=== PATIENT | male | born 1980 | race Caucasian/White ===

== ENCOUNTER 2018-12-21 14:09 | Emergency (ER) | payer OTHER ==
[~2018-12-21] VITALS: Ht 175.3 cm; Wt 90.9 kg
[2018-12-21 15:04] LABS: BASO % 0.6 % (0.0-1.0); EOS # 0.2 10^3/uL (0.0-0.50); EOS % 4.8 % (0.0-3.0); HEMATOCRIT 38.3 % (42.0-52.0); HEMOGLOBIN 13.3 g/dl (13.5-17.5); LYMPH # 1.4 10^3/uL (1.5-4.5); LYMPH % 40.1 % (24.0-44.0); MEAN CORPUSCULAR HEMOGLOBIN 31.8 pg (27.0-33.0); MEAN CORPUSCULAR HGB CONC 34.7 g/dl (32.0-36.5); MEAN CORPUSCULAR VOLUME 91.6 fl (80.0-96.0); MONO # 0.6 10^3/uL (0.0-0.8); NEUTROPHILS # 1.4 10^3/uL (1.8-7.7); NEUTROPHILS % 38.2 % (36.0-66.0); PLATELET COUNT, AUTOMATED 200 10^3/uL (150-450); RED BLOOD COUNT 4.18 10^6/uL (4.30-6.10); WHITE BLOOD COUNT 3.6 10^3/uL (4.0-10.0)
[2018-12-21] MEDS ORDERED: ONDANSETRON 4MG/2ML VIAL (J2405) IV ONE (15:15)
[2018-12-21] MEDS ORDERED: KETOROLAC 30 MG/ML VIAL (J1885) IV ONE (15:15)
[2018-12-21 15:59] LABS: ALT/SGPT 48 U/L (12-78); BILIRUBIN,TOTAL 0.3 MG/DL (0.2-1.0); BLOOD UREA NITROGEN 18 MG/DL (7-18); CALCIUM LEVEL 8.8 MG/DL (8.5-10.1); CARBON DIOXIDE LEVEL 26 MEQ/L (21-32); CHLORIDE LEVEL 105 MEQ/L (98-107); GLOMERULAR FILTRATION RATE > 60.0 (>60); GLUCOSE, FASTING 90 MG/DL (70-100); POTASSIUM SERUM 3.7 MEQ/L (3.5-5.1); SODIUM LEVEL 139 MEQ/L (136-145)
[2018-12-21 16:00] LABS: ALBUMIN 4.1 GM/DL (3.2-5.2); AMYLASE 31 U/L (25-115); BILIRUBIN,DIRECT < 0.1 MG/DL (0.0-0.2); LIPASE 89 U/L (73-393); TOTAL PROTEIN 7.2 GM/DL (6.4-8.2)
[2018-12-21] MEDS ORDERED: ZOFR4TAB16 PO (17:11)
[2018-12-21 17:22] VITALS: BP 116/77
--- NOTE | 2018-12-21 18:00 | REP ---
Right upper quadrant sonography: History: Right upper quadrant pain. Findings: Scanning through the right upper quadrant of the abdomen demonstrates a normal sized thin-walled gallbladder without evidence of stone. There are two polyps measuring two and 3 mm in diameter on the nondependent gallbladder wall. Gallbladder wall is not visibly thickened. No pericholecystic fluid is seen. Common bile duct is normal measuring 0.4 cm in greatest diameter. There is evidence of fatty infiltration of the liver. There is an area of slightly hypoechoic texture adjacent to the gallbladder measuring up to 4.8 cm in greatest diameter. This is compatible with an area of fat sparing. No other evidence of focal liver lesion is seen. Limited views of the pancreas show no abnormality. No right renal abnormality or ascites is seen. Right kidney measures 13.0 x 4.8 x 6.6 cm. Impression: 1. Fatty infiltration of the liver with a fairly large area of fat sparing near the gallbladder. 2. There are two tiny gallbladder wall polyps. No stone is seen. 3. Otherwise negative. Electronically Signed by Adams Canchola MD 12/21/2018 08:22 P
--- NOTE | 2018-12-23 13:35 | ED PDOC ---
Post-Departure Follow-Up ft zuleika nguyen faxed formal report of gb us for fu Trang Concepcion MD Dec 23, 2018 13:35
== END 2018-12-21 17:28 | disposition home or self-care (01) ==
LOC: M ED 14:09
DX: K52.9 Noninfective gastroenteritis and colitis, unspecified (principal)
CPT/HCPCS: 76705; 80048; 80076; 82150; 83690; 85025; 96374; 96375; 99283; J1885; J2405